=== PATIENT | male | born 1990 | race Hispanic/Latino ===

== ENCOUNTER 2019-03-25 03:01 | Observation (INO) ==
[2019-03-25] MEDS ORDERED: ONDANSETRON 4 MG/2 ML VIAL IVP ONE ×2 (03:06→03:13)
[2019-03-25] MEDS ORDERED: ONDANSETRON 4 MG/2 ML VIAL ONE (03:07)
[2019-03-25] MEDS ORDERED: Sodium Chloride 0.9% 1,000 ML PRIMARY IV ONE (03:13)
[2019-03-25 03:30] LABS: BLOOD UREA NITROGEN 17 mg/dL (7-22)
[2019-03-25 03:35] LABS: Hematocrit [HCT] 49.1 % (42.0-52.0); Hemoglobin [HGB] 16.7 g/dL (14.0-18.0); MEAN CORPUSCULAR HGB CONC 34.1 g/dL (33-37); MEAN CORPUSCULAR VOLUME 91 FL (80-90); RED BLOOD COUNT 5.37 10^6/uL (4.70-6.10)
[2019-03-25 03:36] LABS: BASOPHILS # (AUTO) 0.08 10*3/UL; BASOPHILS % (AUTO) 0.9 % (0-1); EOSINOPHILS # (AUTO) 0.41 10*3/UL; EOSINOPHILS % (AUTO) 4.4 % (0-8); LYMPHOCYTES # (AUTO) 4.28 10*3/uL; MEAN PLATELET VOLUME 7.3 FL (7.4-12.2); MONOCYTES % (AUTO) 10.6 % (5-15); NEUTROPHILS # (AUTO) 3.65 10*3/UL; NEUTROPHILS % (AUTO) 38.7 % (50-80); PLATELET MORPHOLOGY COMMENT NORMAL MORPHOLOGY (NORM); WBC MORPHOLOGY COMMENT NORMAL MORPHOLOGY (NORM)
[2019-03-25 03:37] LABS: RBC MORPHOLOGY COMMENT NORMAL MORPHOLOGY (NORM)
[2019-03-25] MEDS ORDERED: ceFAZolin 1 GM VIAL IVP ONE (03:55)
[2019-03-25] MEDS ORDERED: Sodium Chloride 0.9% 100 ML IV ONE (04:02)
[2019-03-25] MEDS ORDERED: HYDROcodone-APAP 5 MG -325 MG TABLET PO PRN (04:06)
[2019-03-25] MEDS ORDERED: ONDANSETRON 4 MG/2 ML VIAL IVP PRN (04:06)
[2019-03-25] MEDS ORDERED: LIDOCAINE W/ SODIUM BICARB 0.5 ML SYR SUBD PRN (04:06)
[2019-03-25] MEDS ORDERED: DOCUSATE 100 MG CAPSULE PO PRN (04:06)
[2019-03-25] MEDS ORDERED: CALCIUM CARBONATE 500 MG (TUMS) CHEWABLE TABLET PO PRN (04:06)
[2019-03-25] MEDS: KETOROLAC 15 MG/1 ML VIAL IVP PRN ×2 (05:01→14:05)
[2019-03-25 10:36] LABS: BILIRUBIN,URINE NEGATIVE (NEG); CLARITY,URINE CLEAR (CLEAR); COLOR,URINE YELLOW (Y); GLUCOSE, URINE (UA) NEGATIVE (NEG); OCCULT BLOOD,URINE NEGATIVE (NEG); PH,URINE 5.5 (5.0-8.5); PROTEIN,URINE NEGATIVE (NEG); UROBILINOGEN,URINE 0.2 EU/dL (0.2)
[2019-03-25 10:45] LABS: AMPHETAMINE SCREEN NEGATIVE (NEG); CANNABINOID SCREEN,URINE NEGATIVE (NEG); COCAINE SCREEN POSITIVE (NEG); METHADONE URINE SCREEN NEGATIVE (NEG); METHAMPHETAMINES SCREEN,URINE NEGATIVE (NEG); OPIATE SCREEN,URINE NEGATIVE (NEG); URINE SAMPLE TYPE CLEAN CATCH URINE; URINE SPECIFIC GRAVITY - MAN 1.015
[2019-03-26 04:43] VITALS: RESP 20
[2019-03-26 05:09] LABS: BASOPHILS % (AUTO) 0.3 % (0-1); EOSINOPHILS % (AUTO) 2.9 % (0-8); Hematocrit [HCT] 42.5 % (42.0-52.0); MEAN CORPUSCULAR HGB CONC 32.9 g/dL (33-37); MEAN CORPUSCULAR VOLUME 86.4 FL (80-90); MEAN PLATELET VOLUME 9.6 FL (7.4-12.2); MONOCYTES % (AUTO) 11.1 % (5-15); NEUTROPHILS % (AUTO) 53.1 % (50-80); RED BLOOD COUNT 4.92 10^6/uL (4.70-6.10)
[2019-03-26 05:10] LABS: BASOPHILS # (AUTO) 0.02 10*3/UL; EOSINOPHILS # (AUTO) 0.23 10*3/UL; LYMPHOCYTES # (AUTO) 2.56 10*3/uL; MONOCYTES # (AUTO) 0.88 10*3/UL (0.3-0.8); NEUTROPHILS # (AUTO) 4.24 10*3/UL; PLATELET MORPHOLOGY COMMENT NORMAL MORPHOLOGY (NORM); RBC MORPHOLOGY COMMENT NORMAL MORPHOLOGY (NORM); WBC MORPHOLOGY COMMENT NORMAL MORPHOLOGY (NORM)
[2019-03-26 07:16] VITALS: BP 116/70; TEMP 98; O2SAT 91
== END 2019-03-26 10:13 | disposition home or self-care (01) ==
LOC: ER 03:01 → MED/SURG 03:01
PROVIDERS: ADMIT Surgery; ATTEND Surgery